=== PATIENT | female | born 1960 | race Caucasian/White ===

== ENCOUNTER 2021-07-18 07:27 | Day surgery (SDC) | payer BC ==
[2021-07-14 09:32] VITALS: BMI 22.6
[~2021-07-18 07:27] MED LIST: LACTATED RINGERS 1,000 ML IV SCH; LIDOCAINE 1% (10MG/ML) FOR IV START INTRADERMA PRN
[2021-07-18 07:53] VITALS: TEMP 97.6
[2021-07-18] MEDS ORDERED: LIDOCAINE 2% INJ 20 MG/ML (2 ML VIAL) ONE (08:53)
[2021-07-18] MEDS ORDERED: PROPOFOL 10 MG/ML 20 ML VIAL IV ONE (08:53)
--- NOTE | 2021-07-18 09:09 | P.PCN ---
Date of Procedure: 07/18/21 Procedure(s) Performed: BRIEF HISTORY: Patient is a 61-year-old pleasant white female scheduled for an elective colonoscopy as a part of screening for colorectal neoplasia. Her last colonoscopy was 10 years ago. PROCEDURE PERFORMED: Colonoscopy with snare polypectomy PREOPERATIVE DIAGNOSIS: Screening for colon cancer. IV sedation per Anesthesia. PROCEDURE: After informed consent was obtained, the patient, was brought into the endoscopy unit. IV sedation was administered by Anesthesia under continuous monitoring. Digital rectal examination was normal. Initially the Olympus CF-160 flexible video colonoscope was then inserted in the rectum, gradually advanced into the cecum without any difficulty. Careful examination was performed as the scope was gradually being withdrawn. Ileocecal valve and the appendiceal orifice were visualized and appeared normal. Prep was excellent. Mucosa of the cecum, ascending colon, appeared normal. In the hepatic flexure there was a 3 mm and 6 mm sessile polyp removed by snare polypectomy. Rest of the transverse colon, descending colon, appeared normal. In the sigmoid: There was a 5 mm polyp removed by snare polypectomy. Rest of the sigmoid colon, and rectum appeared normal. Retroflexion was performed in the rectum and no lesions were seen. The patient tolerated the procedure well. IMPRESSION: 3 mm and 6 mm hepatic flexure polyp serous posterior polypectomy 5 mm sigmoid colon polyp status post polypectomy RECOMMENDATIONS: Findings of this examination were discussed with the patient family.. She was advised to follow with the biopsy results. If the biopsy reveals adenoma she can have a repeat colonoscopy in 5 years
[2021-07-18 09:39] VITALS: BP 131/82; PULSE 54; RESP 20
== END 2021-07-18 09:45 | disposition home or self-care (01) ==
LOC: ORWHC2ENDO 07:27
PROVIDERS: ATTEND Internal Medicine Gastroenterology
DX: Z12.11 Encounter for screening for malignant neoplasm of colon (principal); D12.3 Benign neoplasm of transverse colon; D12.5 Benign neoplasm of sigmoid colon; Z79.899 Other long term (current) drug therapy; Z88.0 Allergy status to penicillin; Z88.2 Allergy status to sulfonamides
CPT/HCPCS: 45385; 88305; J2704; J2001